=== PATIENT | male | born 1980 | race Caucasian/White ===

== ENCOUNTER 2024-07-24 18:34 | Emergency (ER) | payer BC ==
[2024-07-24] MEDS: Sodium Chloride 0.9% 1,000 ML IV ONE (20:09)
[2024-07-24] MEDS: Ondansetron 4 MG/2 ML SDV IVPUSH ONE (20:09)
[2024-07-24] MEDS: Ketorolac 30 MG/ML SDV IVPUSH ONE (20:09)
[2024-07-24 20:15] LABS: BASOPHILS ABSOLUTE AUTO 0.02 K/uL (0.00-0.20); BASOPHILS PERCENT AUTO 0.3 % (0.0-1.0); EOSINOPHILS ABSOLUTE AUTO 0.08 K/uL (0.00-0.45); EOSINOPHILS PERCENT AUTO 1.2 % (0.0-6.0); HEMATOCRIT 40.9 % (42.0-52.0); HEMOGLOBIN 14.3 g/dL (14.0-18.0); IMMATURE GRAN ABSOLUTE AUTO 0.01 K/uL (0.00-0.05); IMMATURE GRAN PERCENT AUTO 0.1 % (0.0-0.4); LYMPHOCYTES ABSOLUTE AUTO 2.64 K/uL (1.00-4.80); LYMPHOCYTES PERCENT AUTO 38.8 % (24.0-44.0); MEAN CORPUSCULAR HEMOGLOBIN 30.3 pg (28.0-32.0); MEAN CORPUSCULAR VOLUME 86.7 fL (83.0-99.0); MEAN PLATELET VOLUME 9.5 fL (9.4-12.4); MONOCYTES ABSOLUTE AUTO 0.55 K/uL (0.00-0.80); MONOCYTES PERCENT AUTO 8.1 % (0.0-8.0); NEUTROPHILS ABSOLUTE AUTO 3.51 K/uL (1.80-7.70); NEUTROPHILS PERCENT AUTO 51.5 % (41.0-71.0); PLATELET COUNT,PLT 216 K/uL (150-400); RED BLOOD CELL COUNT 4.72 M/uL (4.52-5.90); WHITE BLOOD CELL COUNT,WBC 6.81 K/uL (3.9-11.3)
[2024-07-24 20:26] LABS: A/G RATIO 1.5 (0.9-1.6); ALBUMIN 4.4 g/dL (3.4-5.0); BILIRUBIN TOTAL 1.3 mg/dL (0.2-1.0); CALCIUM 8.8 mg/dL (8.5-10.1); CREATININE 0.9 mg/dL (0.8-1.3); EST CRCL DRUG DOSING (CG) 102.7 mL/min; POTASSIUM,K 3.5 mmol/L (3.5-5.1); PROTEIN TOTAL,TP 7.4 g/dL (6.4-8.2)
[2024-07-24] MEDS: Cephalexin 500 MG Cap PO ONE (21:38)
[2024-07-24] MEDS: Sulfamethoxazole/Trimethoprim 800-160 MG Tab PO ONE (21:38)
== END 2024-07-24 22:01 | disposition home or self-care (01) ==
LOC: MW.ED 18:34
DX: L03.316 Cellulitis of umbilicus (principal); L02.216 Cutaneous abscess of umbilicus; Z88.0 Allergy status to penicillin; Z75.8 Other problems related to medical facilities and other health care
CPT/HCPCS: 36415; 80053; 85025; 96374; 96375; 99284; A9270; J1885; J2405; J7030